=== PATIENT | female | born 1950 ===

== ENCOUNTER 2017-05-18 08:06 | Day surgery (SDC) | payer MEDICARE ==
[2017-05-18 08:51] VITALS: BMI 30.9
[2017-05-18] MEDS ORDERED: Lactated Ringer's 1,000 ML IV ONE (09:10)
[2017-05-18] MEDS ORDERED: Propofol 10 mg/ml Inj (20 ML) ONE ×2 (09:14)
[2017-05-18] MEDS ORDERED: Lidocaine Hydrochloride 5 ML INJ ONE (09:16)
[2017-05-18] MEDS ORDERED: Lactated Ringer's 500 ML IV SCH (09:45)
[2017-05-18 10:01] VITALS: TEMP 97.3
[2017-05-18 10:14] VITALS: RESP 12
[2017-05-18 11:02] VITALS: BP 127/68; PULSE 69; O2SAT 98
== END 2017-05-18 11:00 | disposition home or self-care (01) ==
LOC: C.ENDO 08:06
PROVIDERS: ATTEND Internal Medicine
DX: Z12.11 Encounter for screening for malignant neoplasm of colon (principal); Z86.010 Personal history of colon polyps; D12.5 Benign neoplasm of sigmoid colon; D12.3 Benign neoplasm of transverse colon; K57.30 Diverticulosis of large intestine without perforation or abscess without bleeding
CPT/HCPCS: 45380; 88305; J2704; J7120

== ENCOUNTER 2017-12-11 11:34 | Inpatient (IN) | payer MEDICARE, OTHER ==
[2017-12-11 12:48] VITALS: BMI 30.2
[2017-12-11] MEDS ORDERED: Heparin 0 ML IV ONE (15:59)
[2017-12-11] MEDS ORDERED: Midazolam 2 MG/2 ML VIAL ONE (16:30)
[2017-12-11] MEDS ORDERED: DiphenhydrAMINE 50 mg/ml Inj ONE (16:30)
[2017-12-11] MEDS ORDERED: Iohexol 350mg/ml 100 ML ONE (16:34)
[2017-12-11] MEDS ORDERED: Sodium Chloride 0.45% 1,000 ML IV SCH (17:30)
--- NOTE | 2017-12-12 06:16 | CP.PCM.CON ---
History of Present Illness - History of Present Illness History of Present Illness: 67 F with hx of exertional dyspnea, abnormal stress test, HTN and hyperlipidemia admitted after cath 1. Patent coronaries 2. Coronary fistula into LV 3. Possible severe MR Admitted for further evaluation including ECHO, [place] Unclear if symptoms related to coronary steal or MR Continue ASA, Statins and B blockers for now will follow Review of Systems - Constitutional Constitutional: absent: As Per HPI, Anorexia, Chills, Daytime Sleepiness, Excessive Sweating, Fatigue, Fever, Frequent Falls, Headache, Increased Appetite , Lethargy, Malaise, Night Sweats, Snoring, Sleep Apnea, Weight Gain, Weight Loss, Weakness, Other - EENT Eyes: absent: As Per HPI, Blind Spots, Blurred Vision, Change in Vision, Decreased Night Vision, Diplopia, Discharge, Dry Eye, Exophthalmos, Floaters, Irritation, Itchy Eyes, Loss of Peripheral Vision, Pain, Photophobia, Requires Corrective Lenses, Sees Flashes, Spots in Vision, Tunnel Vision, Other Visual Disturbances, Loss of Vision, Other Ears: absent: As Per HPI, Decreased Hearing, Ear Discharge, Ear Pain, Tinnitus, Abnormal Hearing, Disequilibrium, Dizziness, Other Nose/Mouth/Throat: absent: As Per HPI, Epistaxis, Nasal Congestion, Nasal Discharge, Nasal Obstruction, Nasal Trauma, Nose Pain, Post Nasal Drip, Sinus Pain, Sinus Pressure, Bleeding Gums, Change in Voice, Dental Pain, Dry Mouth, Dysphagia, Halitosis, Hoarsness, Lip Swelling, Mouth Lesions, Mouth Pain, Odynophagia, Sore Throat, Throat Swelling, Tongue Swelling, Facial Pain, Neck Pain, Neck Mass, Other - Cardiovascular Cardiovascular: Chest Pain, Dyspnea - Respiratory Respiratory: Dyspnea - Gastrointestinal Gastrointestinal: absent: As Per HPI, Abdominal Pain, Belching, Bloating, Change in Bowel Habits, Change in Stool Character, Coffee Ground Emesis, Constipation, Cramping, Diarrhea, Dyspepsia, Dysphagia, Early Satiety, Excessive Flatus, Fecal Incontinence, Heartburn, Hematemesis, Hematochezia, Loose Stools, Melena, Nausea, Odynophagia, Temesmus, Vomiting, Other - Musculoskeletal Musculoskeletal: absent: As Per HPI, Abnormal Gait, Arthralgias, Atrophy, Back Pain, Deformity, Joint Swelling, Limited Range of Motion, Loss of Height, Muscle Cramps, Muscle Weakness, Myalgias, Neck Pain, Numbness, Radiating Pain into Limb, Stiffness, Tingling, Other - Integumentary Integumentary: absent: As Per HPI, Acne, Alopecia, Bleeding Lesions, Change in Hair, Change in Nails, Change in Pigmentation, Changing Lesions, Dry Skin, Erythema, Furuncle, Hirsutism, Lesions, New Lesions, Non-Healing Lesions, Photosensitivity, Pruritus, Rash, Skin Pain, Skin Ulcer, Sores, Striae, Swelling , Unusual Bruising, Wounds, Jaundice, Other - Neurological Neurological: absent: As Per HPI, Abnormal Gait, Abnormal Hearing, Abnormal Movements, Abnormal Speech, Behavioral Changes, Burning Sensations, Confusion, Convulsions, Disequilibrium, Dizziness, Numbness, Focal Weakness, Frequent Falls , Headaches, Lack of Coordination, Loss of Vision, Memory Loss, Paresthesias, Radicular Pain, Restless Legs, Sensory Deficit, Syncope, Tingling, Tremor, Vertigo, Weakness, Other Visual Disturbances, Other - Psychiatric Psychiatric: absent: As Per HPI, Abnormal Sleep Pattern, Anhedonia, Anxiety, Auditory Hallucinations, Behavioral Changes, Change in Appetite, Change in Libido, Confusion, Depression, Difficulty Concentrating, Hallucinations, Homicidal Ideation, Hopelessness, Irritability, Memory Loss, Mood Swings, Panic Attacks, Paranoia, Suicidal Ideation, Visual Hallucinations, Tactile Hallucinations, Other - Endocrine Endocrine: absent: As Per HPI, Change in Body Appearance, Change in Libido, Cold Intolorance, Deepening of Voice, Excessive Sweating, Fatigue, Flushing, Heat Intolorance, Increase in Ring/Shoe/Hat Size, Palpitations, Polydipsia, Polyphagia, Polyuria, Other - Hematologic/Lymphatic Hematologic: absent: As Per HPI, Easy Bleeding, Easy Bruising, Lymphadenopathy, Other Past Patient History - Past Medical History & Family History Past Medical History?: Yes - Past Social History Smoking Status: Never Smoked - CARDIAC Hx Cardiac Disorders: Yes Hx Hypercholesterolemia: Yes Hx Hypertension: Yes (/ pt denies but on cozaar) Other/Comment: varicose veins on ble - PULMONARY Hx Respiratory Disorders: No - NEUROLOGICAL Hx Neurological Disorder: Yes Hx Transient Ischemic Attacks (TIA): Yes - HEENT Hx HEENT Problems: No - RENAL Hx Chronic Kidney Disease: No - ENDOCRINE/METABOLIC Hx Endocrine Disorders: No - HEMATOLOGICAL/ONCOLOGICAL Hx Blood Disorders: No - INTEGUMENTARY Hx Dermatological Problems: No - MUSCULOSKELETAL/RHEUMATOLOGICAL Hx Falls: No - GASTROINTESTINAL Hx Gastrointestinal Disorders: No - GENITOURINARY/GYNECOLOGICAL Hx Genitourinary Disorders: No - PSYCHIATRIC Hx Substance Use: No - SURGICAL HISTORY Hx Surgeries: Yes Hx Cholecystectomy: Yes Other/Comment: CHOLECYSTECTOMY - ANESTHESIA Hx Anesthesia: Yes Hx Anesthesia Reactions: No Meds Allergies/Adverse Reactions: Allergies Allergy/AdvReac Type Severity Reaction Status Date / Time No Known Allergies Allergy Verified 05/18/17 08:52 - Medications Medications: Current Medications Aspirin (Ecotrin) 81 mg PO DAILY [facility] Enoxaparin Sodium (Lovenox) 40 mg SC DAILY [facility] Famotidine (Pepcid) 20 mg PO DAILY [facility] Losartan Potassium (Cozaar) 25 mg PO DAILY [facility] Metoprolol Tartrate (Lopressor) 12.5 mg PO BID [facility] Physical Exam - Constitutional Appears: Well - Head Exam Head Exam: ATRAUMATIC, NORMAL INSPECTION, NORMOCEPHALIC - Eye Exam Eye Exam: EOMI, Normal appearance, PERRL Pupil Exam: NORMAL ACCOMODATION - ENT Exam ENT Exam: Mucous Membranes Moist, Normal Exam - Neck Exam Neck exam: Positive for: Normal Inspection - Respiratory Exam Respiratory Exam: Clear to Auscultation Bilateral, NORMAL BREATHING PATTERN - Cardiovascular Exam Cardiovascular Exam: REGULAR RHYTHM, +S1, +S2, Systolic Murmur - GI/Abdominal Exam GI & Abdominal Exam: Normal Bowel Sounds, Soft - Rectal Exam Rectal Exam: NORMAL INSPECTION - Neurological Exam Neurological exam: Alert, CN II-XII Intact, Reflexes Normal - Psychiatric Exam Psychiatric exam: Normal Affect, Normal Mood - Skin Skin Exam: Normal Color, Warm Results - Vital Signs Recent Vital Signs: Last Vital Signs Temp 98.5 F 12/11/17 23:45 Pulse 80 12/11/17 23:45 Resp 20 12/11/17 23:45 BP 122/73 12/11/17 23:45 Pulse Ox 95 12/11/17 23:45 - Labs Labs: Laboratory Results - last 24 hr 12/11/17 21:25 NT-Pro-B Natriuret Pep 187 - EKG Data EKG shows normal: Sinus rhythm Assessment & Plan - Assessment and Plan (Free Text) Assessment: 67 F with hx of exertional dyspnea, abnormal stress test, HTN and hyperlipidemia admitted after cath 1. Patent coronaries 2. Coronary fistula into LV 3. Possible severe MR Admitted for further evaluation including ECHO, [place] Unclear if symptoms related to coronary steal or MR Continue ASA, Statins and B blockers for now will follow
[2017-12-12 07:13] LABS: HEMOGLOBIN 11.4 g/dL (11.0-16.0); MEAN CELL VOLUME 81.8 fL (81.0-99.0); MEAN CORPUSCULAR HEMOGLOBIN 27.2 pg (27.0-31.0); MEAN CORPUSCULAR HGB CONC 33.2 g/dL (33.0-37.0); MEAN PLATELET VOLUME 7.8 fL (7.2-11.7); PLATELET COUNT 251 K/uL (130-400); RBC 4.18 Mil/uL (3.80-5.20); RED CELL DISTRIBUTION WIDTH 13.9 % (11.5-14.5); WHITE BLOOD COUNT 9.1 K/uL (4.8-10.8)
[2017-12-12 07:50] LABS: ALB/GLOB RATIO 1.1 (1.0-2.1); ALBUMIN 3.6 g/dL (3.5-5.0); ALT/SGPT 19 U/L (9-52); AST/SGOT 36 U/L (14-36); BLOOD UREA NITROGEN 19 mg/dL (7-17); CALCIUM 9.2 mg/dl (8.6-10.4); GFR AFRICAN-AMERICAN > 60; GFR NON-AFRICAN AMERICAN > 60
--- NOTE | 2017-12-12 08:33 | CARDCATH ---
PROCEDURE DATE: 12/11/2017 I was asked by Dr. Feliz to perform cardiac catheterization on Mrs. Levin. I did obtain history from the patient and her daughter. The patient is a 67-year-old female who has history of hypertension, has experienced chest pain, and outpatient stress test was reported to be positive, and the patient was referred by Dr. Russell for cardiac catheterization. The procedure and its risks were thoroughly explained to the patient who understood and agreed for the procedure. PROCEDURE: After local infiltration with 1% lidocaine, a 6-Indonesian sheath was placed to the right femoral artery. Left and right coronary angiography was performed with 6-Indonesian JL4 and JR4 diagnostic catheters. Left ventriculogram was performed with a 6-Indonesian pigtail catheter in ANN projection. The patient tolerated the procedure well without any complications. ANGIOGRAPHIC FINDINGS: Selective injection of the left coronary artery revealed the left main to be a large vessel that trifurcated into a large caliber LAD, large caliber ramus, and large caliber dominant circumflex artery. The entire left coronary circulation was unremarkable, except for significant shunting from the septal pathology technician to the left ventricle prior to leading full opacification of the left coronary circulation. Nonselective injection of the right coronary artery revealed a small codominant vessel that was angiographically unremarkable. Left ventriculogram performed in ANN projection revealed normal wall motion. Overall ejection fraction was estimated at 55%. There was moderate mitral insufficiency and the left aortogram appeared revealed significantly dilated. ASSESSMENT: Unremarkable epicardial chronic secretion, however, significant capillary shunting to the left ventricle and normal left ventricular ejection fraction. Moderate mitral insufficiency. RECOMMENDATIONS: The patient will be admitted to telemetry for overnight observation and will undergo an echocardiographic study tomorrow. The admission would be under the service of Dr. Feliz, and I will update Dr. Feliz on the findings. Florian Zarco MD
[2017-12-12 08:38] LABS: LYMPHOCYTE 31 % (20-40); MONOCYTE 4 % (0-10); NEUTROPHIL 65 % (50-75); TOTAL CELLS COUNTED 100
[2017-12-12 08:39] LABS: PLATELET ESTIMATE NORMAL (NORMAL)
[2017-12-12 08:41] LABS: HYPOCHROMIC SLIGHT
[2017-12-12] MEDS ORDERED: Enoxaparin 40 mg Syringe SC SCH (10:00)
[2017-12-12] MEDS: Enoxaparin 40 mg Syringe SC SCH (10:14)
--- NOTE | 2017-12-12 16:51 | CP.PCM.HP ---
History of Present Illness - History of Present Illness History of Present Illness: cc: abnormal cath HPI patient is a 67 year old who was referred to cardio eval due to co sob. PT was initially seen by Dr. Russell who performed a stress test. Pt was subsequently referred to Dr. Feliz for cath as stress test was positive. PT was found t have a coronary fistula into LV and significant MR. PT was admitted for futher eval. PT currently feels well, with no sob, but does report BARAKAT which is not particularly new. PT was recently started on Losartan.. PMH htn elevated cholesterol Present on Admission - Present on Admission Any Indicators Present on Admission: No Review of Systems - Constitutional Constitutional: absent: Anorexia, Chills - EENT Eyes: absent: Blurred Vision Nose/Mouth/Throat: Epistaxis - Cardiovascular Cardiovascular: Dyspnea on Exertion. absent: Chest Pain, Edema - Respiratory Respiratory: absent: Cough - Gastrointestinal Gastrointestinal: absent: Abdominal Pain - Musculoskeletal Musculoskeletal: absent: Abnormal Gait Past Patient History - Past Medical History & Family History Past Medical History?: Yes - Past Social History Smoking Status: Never Smoked - CARDIAC Hx Cardiac Disorders: Yes Hx Hypercholesterolemia: Yes Hx Hypertension: Yes (/ pt denies but on cozaar) Other/Comment: varicose veins on ble - PULMONARY Hx Respiratory Disorders: No - NEUROLOGICAL Hx Neurological Disorder: Yes Hx Transient Ischemic Attacks (TIA): Yes - HEENT Hx HEENT Problems: No - RENAL Hx Chronic Kidney Disease: No - ENDOCRINE/METABOLIC Hx Endocrine Disorders: No - HEMATOLOGICAL/ONCOLOGICAL Hx Blood Disorders: No - INTEGUMENTARY Hx Dermatological Problems: No - MUSCULOSKELETAL/RHEUMATOLOGICAL Hx Falls: No - GASTROINTESTINAL Hx Gastrointestinal Disorders: No - GENITOURINARY/GYNECOLOGICAL Hx Genitourinary Disorders: No - PSYCHIATRIC Hx Substance Use: No - SURGICAL HISTORY Hx Surgeries: Yes Hx Cholecystectomy: Yes Other/Comment: CHOLECYSTECTOMY - ANESTHESIA Hx Anesthesia: Yes Hx Anesthesia Reactions: No Meds Allergies/Adverse Reactions: Allergies Allergy/AdvReac Type Severity Reaction Status Date / Time No Known Allergies Allergy Verified 05/18/17 08:52 Physical Exam - Constitutional Appears: No Acute Distress - Eye Exam Eye Exam: EOMI, Normal appearance Pupil Exam: NORMAL ACCOMODATION - ENT Exam ENT Exam: Mucous Membranes Moist - Neck Exam Neck exam: Positive for: Normal Inspection - Respiratory Exam Respiratory Exam: NORMAL BREATHING PATTERN. absent: Accessory Muscle Use, Chest Wall Tenderness, Wheezes - Cardiovascular Exam Cardiovascular Exam: REGULAR RHYTHM, RRR, +S1, +S2, Systolic Murmur - GI/Abdominal Exam GI & Abdominal Exam: Normal Bowel Sounds, Soft. absent: Tenderness - Psychiatric Exam Psychiatric exam: Normal Affect, Normal Mood (no leg edema) Results - Vital Signs Recent Vital Signs: Last Vital Signs Temp 98 F 12/12/17 15:40 Pulse 65 12/12/17 15:40 Resp 18 12/12/17 15:40 BP 113/67 12/12/17 15:40 Pulse Ox 96 12/12/17 15:40 - Labs Result Diagrams: 12/12/17 07:03 12/12/17 07:03 Labs: Laboratory Results - last 24 hr 12/11/17 12/12/17 12/12/17 21:25 07:03 07:03 WBC 9.1 RBC 4.18 Hgb 11.4 Hct 34.2 MCV 81.8 MCH 27.2 MCHC 33.2 RDW 13.9 Plt Count 251 MPV 7.8 Neutrophils % (Manual) 65 Lymphocytes % (Manual) 31 Monocytes % (Manual) 4 Platelet Estimate Normal Hypochromasia (manual) Slight Sodium 144 Potassium 4.2 Chloride 106 Carbon Dioxide 26 Anion Gap 16 BUN 19 H Creatinine 0.8 Est GFR ( Amer) > 60 Est GFR (Non-Af Amer) > 60 Random Glucose 92 Calcium 9.2 Total Bilirubin 0.4 AST 36 ALT 19 Alkaline Phosphatase 56 NT-Pro-B Natriuret Pep 187 Total Protein 6.8 Albumin 3.6 Globulin 3.2 Albumin/Globulin Ratio 1.1 Assessment & Plan - Assessment and Plan (Free Text) Assessment: BARAKAT MR coronary fistula into LV HTn cholesterol Disucssed case wt Dr. Feliz [place] per Dr. Feliz cont meds disucssed findings with pt bp is stable cont statin dvt prophylaxis awating for cardiac eval for next step
--- NOTE | 2017-12-12 19:33 | CP.PCM.PN ---
<RishabhMicky matos - Last Filed: 12/12/17 19:24> Subjective - Date & Time of Evaluation Date of Evaluation: 12/12/17 Time of Evaluation: 19:24 - Subjective Subjective: PGY-[address] Feliz Cardiology Service: Pt seen and examined at bedside. Nursing reports no acute events overnight. Patient denies shortness of breath, chest pain, or palpitations. For ECHO this AM. Objective - Vital Signs/Intake and Output Vital Signs (last 24 hours): Temp Pulse Resp BP Pulse Ox 98 F 65 18 113/67 96 12/12/17 15:40 12/12/17 15:40 12/12/17 15:40 12/12/17 15:40 12/12/17 15:40 Intake and Output: 12/12/17 12/13/17 18:59 06:59 Intake Total 300 Balance 300 - Medications Medications: Current Medications Aspirin (Ecotrin) 81 mg PO DAILY [facility] Last Admin: 12/12/17 10:13 Dose: 81 mg Enoxaparin Sodium (Lovenox) 40 mg SC DAILY [facility] Last Admin: 12/12/17 10:14 Dose: 40 mg Famotidine (Pepcid) 20 mg PO DAILY [facility] Last Admin: 12/12/17 10:13 Dose: 20 mg Losartan Potassium (Cozaar) 25 mg PO DAILY [facility] Last Admin: 12/12/17 10:14 Dose: 25 mg Metoprolol Tartrate (Lopressor) 12.5 mg PO BID [facility] Last Admin: 12/12/17 17:58 Dose: 12.5 mg - Labs Labs: 12/12/17 07:03 12/12/17 07:03 - Additional Findings Additional findings: - Constitutional Appears: Well - Head Exam Head Exam: ATRAUMATIC, NORMAL INSPECTION, NORMOCEPHALIC - Eye Exam Eye Exam: EOMI, Normal appearance, PERRL Pupil Exam: NORMAL ACCOMODATION - ENT Exam ENT Exam: Mucous Membranes Moist, Normal Exam - Neck Exam Neck exam: Positive for: Normal Inspection - Respiratory Exam Respiratory Exam: Clear to Auscultation Bilateral, NORMAL BREATHING PATTERN - Cardiovascular Exam Cardiovascular Exam: REGULAR RHYTHM, +S1, +S2, Systolic Murmur - GI/Abdominal Exam GI & Abdominal Exam: Normal Bowel Sounds, Soft - scar from previous open herlinda - Rectal Exam Rectal Exam: NORMAL INSPECTION - Neurological Exam Neurological exam: Alert, CN II-XII Intact, Reflexes Normal - Psychiatric Exam Psychiatric exam: Normal Affect, Normal Mood - Skin Skin Exam: Normal Color, Warm Assessment and Plan - Assessment and Plan (Free Text) Plan: Coronary Fistula, Severe MR Admit to tele Positive stress test wGregoria Russell Cardiac Cath (12/11/17): 1. Patent coronaries 2. Coronary fistula into LV 3. Possible severe MR f/u ECHO, [place] HTN Well-controlled Cozaar 25mg PO Daily Lopressor 12.5mg PO BID Hyperlipidemia Crestor 10mg PO HS (for home simvastatin) Micky Sarmiento PGY-2 D/w Dr. Feliz <Merlin Feliz - Last Filed: 12/12/17 23:44> Objective - Vital Signs/Intake and Output Vital Signs (last 24 hours): Temp Pulse Resp BP Pulse Ox 98 F 65 18 113/67 96 12/12/17 15:40 12/12/17 15:40 12/12/17 15:40 12/12/17 15:40 12/12/17 15:40 Intake and Output: 12/12/17 12/13/17 18:59 06:59 Intake Total 300 Balance 300 - Medications Medications: Current Medications Aspirin (Ecotrin) 81 mg PO DAILY [facility] Last Admin: 12/12/17 10:13 Dose: 81 mg Enoxaparin Sodium (Lovenox) 40 mg SC DAILY [facility] Last Admin: 12/12/17 10:14 Dose: 40 mg Famotidine (Pepcid) 20 mg PO DAILY [facility] Last Admin: 12/12/17 10:13 Dose: 20 mg Losartan Potassium (Cozaar) 25 mg PO DAILY [facility] Last Admin: 12/12/17 10:14 Dose: 25 mg Metoprolol Tartrate (Lopressor) 12.5 mg PO BID [facility] Last Admin: 12/12/17 17:58 Dose: 12.5 mg Rosuvastatin Calcium (Crestor) 10 mg PO [facility] Last Admin: 12/12/17 21:41 Dose: 10 mg - Labs Labs: 12/12/17 07:03 12/12/17 07:03 Assessment and Plan - Assessment and Plan (Free Text) Plan: Patient seen and evaluated personally by mt Plan of care d/w the medical receptionist assistant and as documented ECHO reviewed. Mild MR and normal EF No further cardiac work up needed at this time Cleared for d/c in am with ASA 81 and B blockers
--- NOTE | 2017-12-12 19:52 | CARD ---
APPROVED REPORT EXAM: Two-dimensional and M-mode echocardiogram with Doppler and color Doppler. Other Information Quality : GoodRhythm : INDICATION Dyspnea RISK FACTORS Hypertension Hyperlipidemia 2D DIMENSIONS IVSd0.9 (0.7-1.1cm)LVDd4.7 (3.9-5.9cm) PWd1.1 (0.7-1.1cm)LVDs2.7 (2.5-4.0cm) FS (%) 43.6 %LVEF (%)65.0 (>50%) M-Mode DIMENSIONS Left Atrium (MM)4.16 (2.5-4.0cm)Aortic Root3.40 (2.2-3.7cm) Aortic Cusp Exc.1.84 (1.5-2.0cm) Mitral Valve MV E Aayuiyls29.0cm/sMV A Xvgpyhji557.9cm/sE/A ratio0.6 TDI E/Lateral E'0.0E/Medial E'0.0 Tricuspid Valve TR Peak Xqmkrzyb454hr/sTR Peak Gr.22mmHg LEFT VENTRICLE The left ventricle is normal size. There is mild concentric left ventricular hypertrophy. Left ventricle systolic function is normal. The Ejection Fraction is >70%. There is normal LV segmental wall motion. Transmitral Doppler flow pattern is Grade I-abnormal relaxation pattern. There is no ventricular septal defect visualized. RIGHT VENTRICLE The right ventricle is normal size. The right ventricular systolic function is normal. ATRIA The left atrium is mildly dilated. The right atrium size is normal. AORTIC VALVE The aortic valve is mildly sclerotic. The aortic valve is tri-cuspid. No aortic regurgitation is present. There is no aortic valvular stenosis. MITRAL VALVE The mitral valve is normal in structure. There is no evidence of mitral valve prolapse. Mitral regurgitation is trace. TRICUSPID VALVE The tricuspid valve is normal in structure. There is trace tricuspid regurgitation. Right ventricular systolic pressure is estimated at less than 30 mmHg. There is no pulmonary hypertension. PULMONIC VALVE The pulmonic valve is not well visualized. There is trace pulmonic valvular regurgitation. GREAT VESSELS The aortic root is normal in size. The ascending aorta is normal in size. The IVC is normal in size and collapses >50% with inspiration. PERICARDIAL EFFUSION There is no pericardial effusion. <Conclusion> There is mild concentric left ventricular hypertrophy. Left ventricle systolic function is normal. The Ejection Fraction is >70%. Transmitral Doppler flow pattern is Grade I-abnormal relaxation pattern. Mitral regurgitation is trace.
[2017-12-13 01:22] VITALS: RESP 20; O2SAT 94
[2017-12-13 07:29] LABS: BASO % 0.4 % (0.0-2.0); EOS # 0.3 K/uL (0.0-0.7); EOS % 3.2 % (0.0-4.0); HEMOGLOBIN 11.4 g/dL (11.0-16.0); LYMPH % 36.9 % (20.0-40.0); MEAN CELL VOLUME 81.3 fL (81.0-99.0); MEAN CORPUSCULAR HEMOGLOBIN 27.4 pg (27.0-31.0); MEAN CORPUSCULAR HGB CONC 33.8 g/dL (33.0-37.0); MEAN PLATELET VOLUME 7.9 fL (7.2-11.7); MONO # 0.5 K/uL (0.0-0.8); MONO % 6.4 % (0.0-10.0); NEUT # 4.3 K/uL (1.8-7.0); NEUT % 53.1 % (50.0-75.0); RBC 4.16 Mil/uL (3.80-5.20); RED CELL DISTRIBUTION WIDTH 13.9 % (11.5-14.5); WHITE BLOOD COUNT 8.1 K/uL (4.8-10.8)
[2017-12-13 08:01] LABS: ALBUMIN 3.5 g/dL (3.5-5.0); ALT/SGPT 15 U/L (9-52); AST/SGOT 24 U/L (14-36); BLOOD UREA NITROGEN 18 mg/dL (7-17); GFR AFRICAN-AMERICAN > 60; GFR NON-AFRICAN AMERICAN > 60
[2017-12-13 08:47] VITALS: BP 122/75; TEMP 97.9
[2017-12-13] MEDS: Enoxaparin 40 mg Syringe SC SCH (09:21)
[2017-12-13 12:10] VITALS: PULSE 65
--- NOTE | 2017-12-13 14:45 | CP.PCM.DIS ---
Provider - Provider Date of Admission: 12/11/17 17:10 Attending physician: Jewell Barlow MD Time Spent in preparation of Discharge (in minutes): 30 Hospital Course - Lab Results Lab Results: Most Recent Lab Values WBC 8.1 K/uL (4.8-10.8) 12/13/17 07:11 RBC 4.16 Mil/uL (3.80-5.20) 12/13/17 07:11 Hgb 11.4 g/dL (11.0-16.0) 12/13/17 07:11 Hct 33.9 % (34.0-47.0) L 12/13/17 07:11 MCV 81.3 fL (81.0-99.0) 12/13/17 07:11 MCH 27.4 pg (27.0-31.0) 12/13/17 07:11 MCHC 33.8 g/dL (33.0-37.0) 12/13/17 07:11 RDW 13.9 % (11.5-14.5) 12/13/17 07:11 Plt Count 258 K/uL (130-400) 12/13/17 07:11 MPV 7.9 fL (7.2-11.7) 12/13/17 07:11 Neut % (Auto) 53.1 % (50.0-75.0) 12/13/17 07:11 Lymph % (Auto) 36.9 % (20.0-40.0) 12/13/17 07:11 [place] % (Auto) 6.4 % (0.0-10.0) 12/13/17 07:11 Eos % (Auto) 3.2 % (0.0-4.0) 12/13/17 07:11 Baso % (Auto) 0.4 % (0.0-2.0) 12/13/17 07:11 Neut # (Auto) 4.3 K/uL (1.8-7.0) 12/13/17 07:11 Lymph # (Auto) 3.0 K/uL (1.0-4.3) 12/13/17 07:11 [place] # (Auto) 0.5 K/uL (0.0-0.8) 12/13/17 07:11 Eos # (Auto) 0.3 K/uL (0.0-0.7) 12/13/17 07:11 Baso # (Auto) 0.0 K/uL (0.0-0.2) 12/13/17 07:11 Neutrophils % (Manual) 65 % (50-75) 12/12/17 07:03 Lymphocytes % (Manual) 31 % (20-40) 12/12/17 07:03 Monocytes % (Manual) 4 % (0-10) 12/12/17 07:03 Platelet Estimate Normal (NORMAL) 12/12/17 07:03 Hypochromasia (manual) Slight 12/12/17 07:03 Sodium 143 mmol/L (132-148) 12/13/17 07:11 Potassium 4.1 mmol/L (3.6-5.2) 12/13/17 07:11 Chloride 107 mmol/L (98-107) 12/13/17 07:11 Carbon Dioxide 26 mmol/L (22-30) 12/13/17 07:11 Anion Gap 14 (10-20) 12/13/17 07:11 BUN 18 mg/dL (7-17) H 12/13/17 07:11 Creatinine 0.7 mg/dL (0.7-1.2) 12/13/17 07:11 Est GFR ( Amer) > 60 12/13/17 07:11 Est GFR (Non-Af Amer) > 60 12/13/17 07:11 Random Glucose 96 mg/dL (65-105) 12/13/17 07:11 Calcium 9.0 mg/dl (8.6-10.4) 12/13/17 07:11 Total Bilirubin 0.5 mg/dL (0.2-1.3) 12/13/17 07:11 AST 24 U/L (14-36) 12/13/17 07:11 ALT 15 U/L (9-52) 12/13/17 07:11 Alkaline Phosphatase 52 U/L (38-126) 12/13/17 07:11 NT-Pro-B Natriuret Pep 187 pg/mL (0-900) 12/11/17 21:25 Total Protein 7.0 g/dL (6.3-8.3) 12/13/17 07:11 Albumin 3.5 g/dL (3.5-5.0) 12/13/17 07:11 Globulin 3.5 gm/dL (2.2-3.9) 12/13/17 07:11 Albumin/Globulin Ratio 1.0 (1.0-2.1) 12/13/17 07:11 - Hospital Course Hospital Course: Pt was admitted by Dr. Feliz after cath out of concerned for a cardiac fistula. Pt had a 2d eccho that showed only mild MR per Dr. Feliz. He recommended no further intervention other than adding a beta keturah. Pt was well and eager to go home. New med a beta keturah. Discharge Exam - Head Exam Head Exam: ATRAUMATIC, NORMAL INSPECTION, NORMOCEPHALIC - Eye Exam Eye Exam: Normal appearance - Respiratory Exam Respiratory Exam: NORMAL BREATHING PATTERN - Cardiovascular Exam Cardiovascular Exam: REGULAR RHYTHM, RRR. absent: JVD Discharge Plan - Follow Up Plan Condition: GOOD
== END 2017-12-13 16:10 | disposition home or self-care (01) | DRG 287 ==
LOC: C.CATHLAB 11:34 → C.9S 17:10 → C.6T 18:24
PROVIDERS: ADMIT Internal Medicine; ATTEND Internal Medicine
PROC: 4A023N7 Measurement of Cardiac Sampling and Pressure, Left Heart, Percutaneous Approach (ICD-10-PCS; principal; 2017-12-11)
PROC: B211YZZ Fluoroscopy of Multiple Coronary Arteries using Other Contrast (ICD-10-PCS; 2017-12-11)
PROC: B215YZZ Fluoroscopy of Left Heart using Other Contrast (ICD-10-PCS; 2017-12-11)
DX: I34.0 Nonrheumatic mitral (valve) insufficiency (principal); I25.41 Coronary artery aneurysm; I25.10 Atherosclerotic heart disease of native coronary artery without angina pectoris; E78.00 Pure hypercholesterolemia, unspecified; I10 Essential (primary) hypertension; Z86.73 Personal history of transient ischemic attack (TIA), and cerebral infarction without residual deficits; Z90.49 Acquired absence of other specified parts of digestive tract; I83.90 Asymptomatic varicose veins of unspecified lower extremity